=== PATIENT | female | born 1975 | race Asian ===

== ENCOUNTER 2021-01-18 07:18 | Inpatient (IN) | payer MEDICARE ==
[~2021-01-18] VITALS: Ht 152.4 cm; Wt 34.0 kg
--- NOTE | 2021-01-18 07:18 | NUR ---
PT WALKED TO ER CO WEAKNESS, SOB. PT BREATHING NORMALLY, RA 100%. PT SAYS THAT SHE WAS D/JAN FROM [facility] TODAY. PT SAYS THAT THEY GAVE HER SOME "SODIUM" AND SOME "NITRO", FOR HER TO FEEL BETTER. PT SAYS THAT SHE HAS BEEN SICK FOR 10 YRS BUT UNABLE TO PROVIDE DETAIL ABOUT HER MEDICAL HISTORY. PT DENEIS TO TAKE ANY MED AT HOME AND SAYS THAT SHE LIVES ALONE.
[2021-01-18] MEDS ORDERED: HYDROMORPHONE 1 MG/1 ML DISP.SYRIN IV ONE (07:45)
[2021-01-18] MEDS ORDERED: IV NORMAL SALINE 1000 ML BAG IV ONE (07:45)
[2021-01-18] MEDS ORDERED: ONDANSETRON 4 MG/2 ML VIAL IV ONE (07:45)
[2021-01-18] MEDS ORDERED: HYDROMORPHONE 1 MG/1 ML DISP.SYRIN ONE (08:08)
[2021-01-18] MEDS ORDERED: ONDANSETRON 4 MG/2 ML VIAL ONE (08:08)
[2021-01-18 08:18] LABS: BASOPHILS % (AUTO) 0.1 % (0.0-2.0); EOSINOPHILS % (AUTO) 0.3 % (0.0-7.0); HEMOGLOBIN 10.9 g/dL (10.9-14.3); LYMPHOCYTES # (AUTO) 1.6 K/uL (20.0-40.0); LYMPHOCYTES % (AUTO) 28.5 % (20.5-51.5); MEAN CORPUSCULAR HEMOGLOBIN 30.4 uug (24.7-32.8); MEAN CORPUSCULAR HGB CONC 34 g/dL (32.3-35.6); MEAN CORPUSCULAR VOLUME 89.1 fL (75.5-95.3); MONOCYTES # (AUTO) 0.4 K/uL (2.0-10.0); MONOCYTES % (AUTO) 8.1 % (0.0-11.0); NEUTROPHILS # (AUTO) 3.4 K/uL (1.8-8.9); PLATELET COUNT (AUTO) 362 K/uL (179-408); WHITE BLOOD COUNT (AUTO) 5.4 K/uL (3.8-11.8)
[2021-01-18 08:24] LABS: CREATININE 0.8 mg/dL (0.6-1.3); POTASSIUM 3.2 mmol/L (3.5-5.1)
[2021-01-18 08:29] LABS: BILIRUBIN,DIRECT 0.2 mg/dL (0.0-0.2); BILIRUBIN,TOTAL 0.4 mg/dL (0.2-1.0); TOTAL PROTEIN, SERUM 7.2 g/dL (6.4-8.2)
--- NOTE | 2021-01-18 08:45 | NUR ---
IN ROOM WITH PT MULTIPE TIMES, PT WORRIED THAT " SHE MIGHT HAVE MULTIPLE ORGAN FAILURE AND NASEEM ANXIOUS IF SHE CAN SEE HER DAUGHETR AGAIN." COMFORT MEASURES PROVIDED.
--- NOTE | 2021-01-18 08:55 | NUR ---
SOPHY CORDERO AT BEDSIDE. PT COMPLAINS OF CP/10.
--- NOTE | 2021-01-18 09:03 | NUR ---
OFFERD PT IF SHE NEEDS ANY MED TO CALM HER, SHE REFUSED ANY MED AT THIS TIME.
[2021-01-18] MEDS ORDERED: NITROGLYCERIN 0.4 MG/TAB BOTTLE SL ONE (09:15)
[2021-01-18] MEDS ORDERED: ASPIRIN 325 MG TABLET PO ONE (09:15)
--- NOTE | 2021-01-18 09:15 | NUR ---
RADHA GAEMZ AT BEDSIDE.
--- NOTE | 2021-01-18 09:30 | NUR ---
transfered pt to floor in stable condition.
[2021-01-18] MEDS ORDERED: IV 1/2NS 1000 ML 1,000 ML IV ONE (09:45)
[2021-01-18] MEDS ORDERED: MORPHINE SULFATE 2 MG/1 ML DISP.SYRIN IV PRN (09:45)
[2021-01-18] MEDS ORDERED: ACETAMINOPHEN 325 MG TABLET PO PRN (09:45)
[2021-01-18] MEDS ORDERED: ONDANSETRON 4 MG/2 ML VIAL IV PRN (09:45)
[2021-01-18] MEDS ORDERED: HYDROCODONE/APAP 5-325MG TABLET PO PRN (09:45)
[2021-01-18] MEDS ORDERED: MAGNESIUM HYDROXIDE 30 ML LIQUID UDC PO PRN (09:45)
[2021-01-18 10:00] VITALS: BP 103/67
[2021-01-18] MEDS ORDERED: diphenhydrAMINE 50 MG/1 ML VIAL IV ONE (11:30)
[2021-01-18] MEDS ORDERED: IOHEXOL 300MG/ML 100 ML INFUS..BTL ONE (11:46)
[2021-01-18] MEDS ORDERED: IOHEXOL 350 100 ML INFUS..BTL ONE (11:47)
[2021-01-18] MEDS ORDERED: IV NORMAL SALINE 250 ML IV ONE (11:47)
[2021-01-18] MEDS ORDERED: SWABABLE VALVE TRANSFER SET EA MC ONE (11:47)
[2021-01-18] MEDS ORDERED: ALPRAZOLAM 0.25 MG TABLET PO PRN (12:15)
[2021-01-18] MEDS ORDERED: POTASSIUM CHLORIDE 20 MEQ TAB.PRT.SR PO ONE (12:15)
[2021-01-18 16:29] VITALS: BP 119/74
--- NOTE | 2021-01-18 17:30 | NUR ---
Pt claiming that there is "something invading her face and that it needs drainage." Offered ice to be aplied on her neck. pt agreeable with intervention.
--- NOTE | 2021-01-18 18:00 | NUR ---
Applied ice pack applied on pt's neck. PT states that ice helped and now she is able eat her dinner. Pt ate 100% for dinner.
--- NOTE | 2021-01-18 18:00 | NUR ---
Pt IV on right ac intact. Noted dry skin "rash on back" pix take. Pt states she has "boil" on her upper and lower lips pix taken - but no boil visible. Pt states that her neck is swollen- but no swelling noted. Pt denies any c/o pain. Tele SNR. ECHO, CT HEAD, CT neck and CTA chest with contrast all done and tolerated by patient. Pt able to ambulates to bathroom with good balance. Call light is within reach.
--- NOTE | 2021-01-18 19:30 | NUR ---
RECEIVED PT AWAKE, ALERT AND ORIENTEDX4. PT IV INTACT.PT IN NO ACUTE RESPIRATORY DISTRESS. SAFETY AND COMFORT PROVIDED. WILL CONTINUE TO MONITOR.
[2021-01-18 20:35] VITALS: BP 111/69
--- NOTE | 2021-01-18 21:00 | NUR ---
DR. NELSON SEEN THE PT. PT STATING THAT SHE HAS BOILS ON HER MOUTH- BUT NO BOILS NOTED. PT STATING SHE HAS SWELLING ON HER NECK- BUT NO SWELLING NOTED. WILL CONTINUE TO MONITOR.
[2021-01-18] MEDS: ZOLPIDEM 5 MG TABLET PO PRN (22:56)
[2021-01-18 23:20] LABS: *CLARITY,URINE CLEAR (CLEAR); *COLOR,URINE YELLOW (YELLOW)
[2021-01-18 23:21] LABS: *BLOOD, URINE 3+ (NEGATIVE); PH,URINE 7.5 (5.0-8.0); UGLUCOSE NEGATIVE (NEGATIVE)
[2021-01-18 23:22] LABS: *BILIRUBIN,URIN NEGATIVE (NEGATIVE); *KETONES,URINE NEGATIVE (NEGATIVE); *UROBILINOGEN,URINE 0.2 E.U./dl (NORMAL); LEUKOCYTE ESTERASE ,URINE 1+ (NEGATIVE); NITRITE, URINE NEGATIVE (NEGATIVE)
[2021-01-18 23:36] LABS: BACTERIA,URINE NONE SEEN /HPF (NONE SEEN); MUCUS,URINE FEW /LPF (0-FEW); RBC,URINE 80-100 /HPF (0-3); SQUAMOUS EPITHELIAL CELL,UR FEW /HPF (NONE SEEN); URINE AMORPHOUS PHOSPHATES FEW /HPF
[2021-01-18 23:41] LABS: *AMPHETAMINE, URINE NEGATIVE (NEGATIVE); *CANNABINOID, URINE NEGATIVE (NEGATIVE); *COCCAINE, URINE NEGATIVE (NEGATIVE); *OPIATE, URINE NEGATIVE (NEGATIVE); *PHENCYCLIDINE SCREEN,URINE NEGATIVE (NEGATIVE)
[2021-01-19 00:21] VITALS: BP 114/69
[2021-01-19 04:33] VITALS: BP 102/67
[2021-01-19] MEDS: LEVOTHYROXINE SODIUM 25 MCG TABLET PO SCH (06:18)
--- NOTE | 2021-01-19 06:21 | NUR ---
PT SLEPT INTERMITTENTLY. AMBIEN PRN GIVEN AT 2256H. PT IN NO ACUTE DISTRESS. IV INTACT. PRESCRIBED MEDICATION GIVEN AND PT TOLERATED IT WELL. SAFETY AND COMFORT PROVIDED. WILL ENDORSE TO INCOMING NURSE FOR CONTINUITY OF CARE.
[2021-01-19 07:07] LABS: BASOPHILS % (AUTO) 0.7 % (0.0-2.0); EOSINOPHILS # (AUTO) 0.1 K/uL (0.0-0.7); EOSINOPHILS % (AUTO) 1.5 % (0.0-7.0); HEMOGLOBIN 9.4 g/dL (10.9-14.3); LYMPHOCYTES # (AUTO) 1.4 K/uL (20.0-40.0); LYMPHOCYTES % (AUTO) 37.4 % (20.5-51.5); MEAN CORPUSCULAR HGB CONC 33 g/dL (32.3-35.6); MEAN CORPUSCULAR VOLUME 92.8 fL (75.5-95.3); MONOCYTES # (AUTO) 0.3 K/uL (2.0-10.0); MONOCYTES % (AUTO) 9.1 % (0.0-11.0); NEUTROPHILS # (AUTO) 1.9 K/uL (1.8-8.9); NEUTROPHILS % (AUTO) 51.3 % (38.5-71.5); PLATELET COUNT (AUTO) 306 K/uL (179-408); RED BLOOD CELL COUNT(AUTO) 3.01 MIL/uL (3.63-4.92); WHITE BLOOD COUNT (AUTO) 3.8 K/uL (3.8-11.8)
[2021-01-19 07:21] LABS: BILIRUBIN,TOTAL 0.6 mg/dL (0.2-1.0); CREATININE 0.6 mg/dL (0.6-1.3); MAGNESIUM 2.2 mg/dL (1.8-2.4); PHOSPHOROUS 3.5 mg/dL (2.5-4.9); POTASSIUM 3.6 mmol/L (3.5-5.1); TOTAL PROTEIN, SERUM 5.8 g/dL (6.4-8.2)
[2021-01-19 08:00] VITALS: BP 105/68
[2021-01-19] MEDS: CEFTRIAXONE 1 G in IV DEXTROSE 5% 50 ML IV SCH (09:21)
--- NOTE | 2021-01-19 10:15 | NUR ---
PT SEEN BY [facility] PROVIDER WITH ORDER FOR PSYCH CONSULT TODAY. DR GRAHAM PSYCHIATRIST HAS BEEN NOTIFIED BY THE DISTILLERY LABORER.
--- NOTE | 2021-01-19 10:55 | NUR ---
SPOKE WITH PATIENT TO VERIFY HOME MEDICATION LIST. STATED THAT SHE USED TO TAKE ELAVIL AT HOME BUT HAS NOT TAKEN ANY FOR MANY MONTHS (MORE THAN A YEAR) SO SHE IS CURRENTLY NOT ON ANY MEDICATIONS. EMR UPDATED
[2021-01-19 11:32] VITALS: BP 102/66
[2021-01-19 15:48] VITALS: BP 98/66
--- NOTE | 2021-01-19 17:21 | NUR ---
[employer] [facility] Consultation requested. SW to follow-up with patient.
[2021-01-19] MEDS: PROTEIN SUPPLEMENT (PROSTAT) 30 ML LIQUID PO SCH (17:27)
--- NOTE | 2021-01-19 18:00 | NUR ---
NOTED ORDER FROM DR NELSON'S DISTRIBUTION ACCOUNTING CLERK DUSTIN FOR CT HEAD WITH CONTRAST. PT AWARE AND SIGNED CONSENT BUT SHE STATED THAT SHE IS ALLERGIC TO RAW SEAFOOD. NOTED ALSO THAT SHE HAD CONTRAST CTA DONE YESTERDAY AND NO ADVERSE EFFECTS NOTED. WILL ENDORSE TOMORROW FOR RADIOLOGY TO MAKE SURE THAT THERE WILL BE NO ADVERSE EFFECTS.
--- NOTE | 2021-01-19 19:30 | NUR ---
RECEIVED PT AWAKE, ALERT AND ORIENTEDX4. PT IN NO ACUTE DISTRESS. PT IV INTACT. SAFETY AND COMFORT PROVIDED. WILL CONTINUE TO MONITOR.
[2021-01-19 20:00] VITALS: BP 97/59
[2021-01-19] MEDS: AMITRIPTYLINE HCL 50 MG TABLET PO SCH (20:49)
[2021-01-20 00:01] VITALS: BP 97/64
[2021-01-20] MEDS: ZOLPIDEM 5 MG TABLET PO PRN (01:16)
[2021-01-20 04:00] VITALS: BP 99/51
--- NOTE | 2021-01-20 06:11 | NUR ---
PT SLEPT INTERMITTENTLY. PT IN NO ACUTE DISTRESS. NEED STOOL SPECIMEN FOR THE PT. PRESCRIBED MEDICATION GIVEN AND PT TOLERATED IT WELL. SAFETY AND COMFORT PROVIDED. ALL NEEDS ARE MET. WILL ENDORSE TO INCOMING NURSE FOR CONTINUITY OF CARE.
[2021-01-20 06:48] LABS: BASOPHILS % (AUTO) 0.8 % (0.0-2.0); EOSINOPHILS # (AUTO) 0.1 K/uL (0.0-0.7); EOSINOPHILS % (AUTO) 2.5 % (0.0-7.0); HEMOGLOBIN 10.5 g/dL (10.9-14.3); LYMPHOCYTES # (AUTO) 1.3 K/uL (20.0-40.0); LYMPHOCYTES % (AUTO) 42.7 % (20.5-51.5); MEAN CORPUSCULAR HEMOGLOBIN 30.5 uug (24.7-32.8); MEAN CORPUSCULAR HGB CONC 34 g/dL (32.3-35.6); MEAN CORPUSCULAR VOLUME 90.5 fL (75.5-95.3); MONOCYTES # (AUTO) 0.3 K/uL (2.0-10.0); MONOCYTES % (AUTO) 8.6 % (0.0-11.0); NEUTROPHILS # (AUTO) 1.4 K/uL (1.8-8.9); NEUTROPHILS % (AUTO) 45.4 % (38.5-71.5); PLATELET COUNT (AUTO) 326 K/uL (179-408); RED BLOOD CELL COUNT(AUTO) 3.43 MIL/uL (3.63-4.92)
[2021-01-20 07:07] LABS: HEPATITIS B SURFACE AB Non Reactive (.); HEPATITIS B SURFACE AG Negative (Negative)
[2021-01-20 07:26] LABS: CREATININE 0.7 mg/dL (0.6-1.3); POTASSIUM 3.3 mmol/L (3.5-5.1)
[2021-01-20] MEDS ORDERED: IV NORMAL SALINE 250 ML IV ONE (07:39)
[2021-01-20] MEDS ORDERED: IOHEXOL 300MG/ML 100 ML INFUS..BTL ONE (07:39)
[2021-01-20] MEDS ORDERED: SWABABLE VALVE TRANSFER SET EA MC ONE (07:39)
[2021-01-20 08:00] VITALS: BP 102/67
[2021-01-20] MEDS ORDERED: POTASSIUM CHLORIDE 20 MEQ POWDER PACKET PO ONE (08:00)
--- NOTE | 2021-01-20 08:00 | NUR ---
RECEIVED PATIENT AWAKE ALERT AND ORIENTED DENIES DISCOMFORTS AT THIS TIME SHE IS ON ROOM AIR WITH NO SHORTNESS OF BREATH AT THIS TIME PATIENT REMAINS NPO AT THIS TIME FOR SCHEDULED CT HEAD AMBULATORY TO AND FROM THE BATHROOM CALL LIGHTS AND PERSONAL BELONGINGS ARE WITHIN EASY REACH WILL CONTINUE TO OBSERVE.
[2021-01-20] MEDS: CEFTRIAXONE 1 G in IV DEXTROSE 5% 50 ML IV SCH (08:34)
[2021-01-20] MEDS: LEVOTHYROXINE SODIUM 25 MCG TABLET PO SCH (08:34)
[2021-01-20] MEDS: PROTEIN SUPPLEMENT (PROSTAT) 30 ML LIQUID PO SCH ×2 (09:09→17:15)
--- NOTE | 2021-01-20 10:00 | NUR ---
CT HEAD WITH CONTRAST COMPLETED ORDERED PATIENT TOLERATED HER BREAKFAST WELL AWAITING FOR RESULTS AT THIS TIME.
--- NOTE | 2021-01-20 10:30 | NUR ---
CONTINUE ON IV ANTIBIOTICS ORDERED WITH NO ADVERSE OR ALLERGIC REACTIONS AT THIS TIME WILL CONTINUE TO OBSERVE.
--- NOTE | 2021-01-20 11:58 | NUR ---
CALL RECEIVED FROM DR PETERSON WITH ORDERS WANTS ESOPHAGOGRAM TODAY AND TO KEEP PATINE NOTHING TO EAT AFTER MID NITE AND TO OBTAIN CONSCENT FOR EGD IN AM AND NOTED.
--- NOTE | 2021-01-20 13:04 | NUR ---
CONSCENT FOR EGD OBTAINED FROM THE PATIENT AND DOCUMENTED PATIENT INSTRUCTED ON THE PROCEDURE AND THAT SHE NEEDS TO BE NPO AFTER MID NITE TONIGHT AND SHE EXPRESSED UNDERSTANDING.
[2021-01-20] MEDS ORDERED: DIATR MEGLU/DIATRIZOATE SODIUM 30 ML BOTTLE ONE (15:37)
--- NOTE | 2021-01-20 15:47 | NUR ---
Clinical Social Work Notes Consult was ordered as patient's sister expressed concern about patient's mental health. Patient was undergoing an EGD at the time this automotive service writer when to evaluate her. Patient has a history of anxiety and sees a psychiatrist, Dr Pineda, via telepsychiatry and reported to Dr Anderson that she was on Ellavil and Alprazalom 0.[address] mg [address] the past[address] Dr Anderson restarted Ellavil 50 mg since patient says this worked for her in the past. This automotive service writer spoke with Dr Anderson who feels that patient is not meeting any inpatient criteria for psychiatric admission. Patient weighs 75 lbs and does wish that she weighed more. She ate 75 % of breakfast today and 100 % of her lunch. It appears patient does have some medical issues which include hypothyroidism. She is preoccupied with boils in her mouth but per Dr Gomez and nursing staff there is no evidence of this. Patient has not expressed any wish to harm herself or others. Patient's sister reportedly to nursing staff that pt. induces vomiting at times and does not eat but does not want the source of this information disclosed to the patient. Medical reasons for patient's low bodyweight are being ruled out. Plan: 1. Social work staff will follow up when patient is back from her procedures. 2. Patient is not meeting any acute inpatient psychiatric admission criteria per Dr Anderson feels he will only consult again if this is needed due to an acute change in her symptoms. 3. Patient is concerned about her medical symptoms and is being worked up for these.She may or may not have an eating disorder but this is not grounds for inpatient admission. She clearly has an anxiety disorder based on her self- report to Dr Anderson and from her prescribed psychotropic medication. 4. Patient will receive referrals for outpatient therapy and intensive outpatient if she is open to this which can be combined with her telepsychiatry with Dr Vance in [place]. Patient will return home once medically stable and cleared by [facility] [employer] group.
--- NOTE | 2021-01-20 17:21 | NUR ---
PATIENT WAS TAKEN BY W/CHAIR TO THE RADIOLOGY DEPARTMENT FOR THE ESOPHAGRAM ORDERED SO NOW THE RESULT IN UNREMARKABLE CALLED DR PETERSON AND NOTIFIED HIM AND HE STATED TO CANCEL THE EGD FOR TOMORROW NOT NECESSARY JUST DO A SWALLOW EVAL AND NOTED
--- NOTE | 2021-01-20 18:31 | NUR ---
CALLED EARNEST DIAZ NP AND LEFT HIM A MESSAGE RE DR PETERSON HAS CANCELLED THE EGD HE WAS PLANNING FOR TOMORROW BASED ON THE RESULT OF THE ESOPHAGRAM AND ORDERED SWALLOW EVALUATION INSTEAD WITH NO NEW ORDERS AT THIS TIME.
[2021-01-20] MEDS: AMITRIPTYLINE HCL 50 MG TABLET PO SCH (20:35)
[2021-01-20] MEDS: DOCUSATE SODIUM 100 MG CAPSULE PO SCH (20:35)
[2021-01-20 20:38] VITALS: BP 101/68
[2021-01-21 00:29] VITALS: BP 100/61
[2021-01-21 04:55] VITALS: BP 104/53
[2021-01-21] MEDS: LEVOTHYROXINE SODIUM 25 MCG TABLET PO SCH (06:25)
--- NOTE | 2021-01-21 06:39 | NUR ---
Pt slept well throughout the night. SR on tele. Denies chest pain or SOB. Pt stated she did not have a bowel movement for 2 days and was requesting docusate sodium, Dr. Olmedo made aware and ordered medication for patient. Tolerated medication well. Bed is locked and in lowest position, call light is within reach. No other issues or concerns at this time, will endorse to day shift.
[2021-01-21 06:59] LABS: BASOPHILS % (AUTO) 0.4 % (0.0-2.0); EOSINOPHILS # (AUTO) 0.1 K/uL (0.0-0.7); EOSINOPHILS % (AUTO) 3.7 % (0.0-7.0); HEMATOCRIT 29.2 % (31.2-41.9); LYMPHOCYTES # (AUTO) 1.4 K/uL (20.0-40.0); LYMPHOCYTES % (AUTO) 44.6 % (20.5-51.5); MEAN CORPUSCULAR HEMOGLOBIN 31.2 uug (24.7-32.8); MEAN CORPUSCULAR HGB CONC 34 g/dL (32.3-35.6); MONOCYTES # (AUTO) 0.3 K/uL (2.0-10.0); MONOCYTES % (AUTO) 10.4 % (0.0-11.0); NEUTROPHILS # (AUTO) 1.3 K/uL (1.8-8.9); NEUTROPHILS % (AUTO) 40.9 % (38.5-71.5); PLATELET COUNT (AUTO) 302 K/uL (179-408); RED BLOOD CELL COUNT(AUTO) 3.21 MIL/uL (3.63-4.92); WHITE BLOOD COUNT (AUTO) 3.2 K/uL (3.8-11.8)
[2021-01-21 07:28] LABS: CREATININE 0.7 mg/dL (0.6-1.3); POTASSIUM 3.4 mmol/L (3.5-5.1)
--- NOTE | 2021-01-21 07:30 | NUR ---
Shift report received, pt in bed resting. alert awake and oriented x4, skin intact, on tele monitor NSR, pt on room air, saturating at 98%, no signs of distress, no reports of pain reported at this time. Pt has BRP, pt on Rocephin to treat UTI. IV access on the right forearm 20g saline lock. Bed in low and locked position, call light within reach safety precautions in place. will continue with place of care.
[2021-01-21 08:00] VITALS: BP 93/62
[2021-01-21] MEDS ORDERED: POTASSIUM CHLORIDE 20 MEQ TAB.PRT.SR PO ONE (09:15)
[2021-01-21] MEDS: PROTEIN SUPPLEMENT (PROSTAT) 30 ML LIQUID PO SCH ×2 (09:22→17:47)
[2021-01-21] MEDS: CEFTRIAXONE 1 G in IV DEXTROSE 5% 50 ML IV SCH (09:28)
--- NOTE | 2021-01-21 13:41 | NUR ---
Clinical Social Work Note Met with patient who presents with bizarre affect. Patient is somatically preoccupied and somatic delusional disorder cannot be ruled out. She says she is now "going to see dr Lopez" after discharge. Patient is open to the idea of seeing a psychotherapist in addition to her psychiatrist. Patient lacks insight. She is not meeting any acute inpatient psychiatric criteria.She will return home once she is medically clear. Discussed case with Alfonso GARCIA who concurs with discharge plan.
[2021-01-21 16:35] VITALS: BP 119/80
[2021-01-21 20:24] VITALS: BP 94/60
[2021-01-21] MEDS: AMITRIPTYLINE HCL 50 MG TABLET PO SCH (20:53)
[2021-01-21] MEDS: DOCUSATE SODIUM 100 MG CAPSULE PO SCH (21:00)
[2021-01-22 00:12] VITALS: BP 94/57
[2021-01-22 04:20] VITALS: BP 103/54
--- NOTE | 2021-01-22 04:52 | NUR ---
Pt slept throughout the night, denies pain or SOB. Denies chest pain. Tolerated all medications well. SR on monitor. Bed is locked and in lowest position, call light is within reach. No other issues or concerns at this time, will endorse to day shift.
[2021-01-22] MEDS: LEVOTHYROXINE SODIUM 25 MCG TABLET PO SCH (05:54)
[2021-01-22 06:25] LABS: BASOPHILS % (AUTO) 0.7 % (0.0-2.0); EOSINOPHILS # (AUTO) 0.1 K/uL (0.0-0.7); EOSINOPHILS % (AUTO) 3.7 % (0.0-7.0); HEMATOCRIT 31.5 % (31.2-41.9); HEMOGLOBIN 10.4 g/dL (10.9-14.3); LYMPHOCYTES # (AUTO) 1.1 K/uL (20.0-40.0); MEAN CORPUSCULAR HEMOGLOBIN 30.5 uug (24.7-32.8); MEAN CORPUSCULAR HGB CONC 33 g/dL (32.3-35.6); MEAN CORPUSCULAR VOLUME 92.2 fL (75.5-95.3); MONOCYTES # (AUTO) 0.3 K/uL (2.0-10.0); MONOCYTES % (AUTO) 9.1 % (0.0-11.0); NEUTROPHILS # (AUTO) 1.4 K/uL (1.8-8.9); NEUTROPHILS % (AUTO) 48.5 % (38.5-71.5); PLATELET COUNT (AUTO) 312 K/uL (179-408); RED BLOOD CELL COUNT(AUTO) 3.42 MIL/uL (3.63-4.92)
[2021-01-22 06:55] LABS: CREATININE 0.7 mg/dL (0.6-1.3); MAGNESIUM 2.3 mg/dL (1.8-2.4); POTASSIUM 3.3 mmol/L (3.5-5.1)
[2021-01-22] MEDS ORDERED: POTASSIUM CHLORIDE 20 MEQ POWDER PACKET GT ONE (07:30)
[2021-01-22 08:42] VITALS: BP 95/72
[2021-01-22] MEDS: CEFTRIAXONE 1 G in IV DEXTROSE 5% 50 ML IV SCH (08:47)
[2021-01-22] MEDS: PROTEIN SUPPLEMENT (PROSTAT) 30 ML LIQUID PO SCH ×2 (08:47→17:01)
[2021-01-22 09:33] LABS: *OCCULT BLOOD STOOL NEGATIVE (NEGATIVE)
[2021-01-22] MEDS ORDERED: [UNRECOGNIZED DRUG - OTHER] TP PRN (11:45)
[2021-01-22] MEDS ORDERED: PETROLATUM,WHITE JELLY 28.35 GM TUBE TP PRN (13:00)
[2021-01-22 15:40] VITALS: BP 97/58
[2021-01-22 15:47] LABS: *RHEUMATOID FACTOR SCREEN NEGATIVE (NEGATIVE)
--- NOTE | 2021-01-22 19:30 | NUR ---
Received pt in bed, awake, verbally responsive, able to make needs known. Pleasant. On room air, non labored breathing, no s/s of respiratory distress. NSR on tele at 82/min. IV access intact and patent. Denies any pain or discomfort at this time. Safety measures in place, call light within reach, will continue to monitor.
[2021-01-22 20:00] VITALS: BP 101/63
[2021-01-22] MEDS: AMITRIPTYLINE HCL 50 MG TABLET PO SCH (20:57)
[2021-01-22] MEDS: DOCUSATE SODIUM 100 MG CAPSULE PO SCH (20:57)
[2021-01-23 00:16] VITALS: BP 96/56
[2021-01-23 04:24] VITALS: BP 93/57
--- NOTE | 2021-01-23 05:30 | NUR ---
Pt in bed, awake, able to make needs known. non labored breathing, no s/s of respiratory distress. NSR on tele at 72/min. Denies any pain or discomfort. Safety measures in place, call light within reach. For US abdomen today. NPO since midnight. all needs attended.
[2021-01-23] MEDS: LEVOTHYROXINE SODIUM 25 MCG TABLET PO SCH (06:03)
[2021-01-23 06:26] LABS: BASOPHILS % (AUTO) 0.6 % (0.0-2.0); EOSINOPHILS # (AUTO) 0.1 K/uL (0.0-0.7); EOSINOPHILS % (AUTO) 3.6 % (0.0-7.0); HEMATOCRIT 29.4 % (31.2-41.9); HEMOGLOBIN 9.8 g/dL (10.9-14.3); LYMPHOCYTES # (AUTO) 1.2 K/uL (20.0-40.0); LYMPHOCYTES % (AUTO) 36.3 % (20.5-51.5); MEAN CORPUSCULAR HEMOGLOBIN 30.5 uug (24.7-32.8); MEAN CORPUSCULAR HGB CONC 33 g/dL (32.3-35.6); MEAN CORPUSCULAR VOLUME 91.8 fL (75.5-95.3); MONOCYTES # (AUTO) 0.3 K/uL (2.0-10.0); MONOCYTES % (AUTO) 8.5 % (0.0-11.0); NEUTROPHILS # (AUTO) 1.6 K/uL (1.8-8.9); PLATELET COUNT (AUTO) 292 K/uL (179-408); RED BLOOD CELL COUNT(AUTO) 3.21 MIL/uL (3.63-4.92); WHITE BLOOD COUNT (AUTO) 3.2 K/uL (3.8-11.8)
[2021-01-23 06:53] LABS: CREATININE 0.7 mg/dL (0.6-1.3); MAGNESIUM 2.2 mg/dL (1.8-2.4); POTASSIUM 3.3 mmol/L (3.5-5.1)
--- NOTE | 2021-01-23 07:30 | NUR ---
received change of shift report. pt awake alert and oriented x4, on room air, no skin issues, pt on tele monitor NSR. no signs of distress noted, no reports of pain at this time. pt currently on NPO diet pending abdominal US. pt has BRP, steady gait, IV access on the left forearm 20g saline lock. Bed in low and locked position, call light within reach, safety precautions in place, will continue with plan of care.
[2021-01-23 08:00] VITALS: BP 92/57
[2021-01-23] MEDS: PROTEIN SUPPLEMENT (PROSTAT) 30 ML LIQUID PO SCH ×2 (08:47→17:22)
[2021-01-23] MEDS ORDERED: CEFTRIAXONE 1 G in IV DEXTROSE 5% 50 ML IV SCH (09:00)
[2021-01-23] MEDS ORDERED: POTASSIUM CHLORIDE 20 MEQ TAB.PRT.SR PO ONE (10:00)
[2021-01-23 11:52] VITALS: BP 103/68
[2021-01-23] MEDS ORDERED: AMIT50TA17 PO (14:13)
[2021-01-23] MEDS ORDERED: PROT30LI PO (14:13)
[2021-01-23] MEDS ORDERED: LEVO25TA9 PO (14:13)
[2021-01-23 16:17] VITALS: BP 107/50
[2021-01-23] MEDS ORDERED: INFLUENZA VACCINE 2020-2021 0.5 ML DISP.SYRIN IM ONE (18:15)
--- NOTE | 2021-01-23 18:59 | NUR ---
pt discharged home with all belongings, and paperwork. Pt awake alert and oriented x4, IV, tele monitor and ID band removed prior to discharge, pt anxious to get home and refused photos. Flu vaccine administered to pt. pt on room air no signs of distress noted, no reports of pain , all medications given as ordered, pt ambulatory with steady gait.
[2021-01-24 17:13] LABS: ANTI-DNA(DS) AB, QN <1
[2021-01-24 17:14] LABS: *SMITH ANTIBODIES <0.2
[2021-01-24 17:15] LABS: *ANTI-SCLERODERMA-70 AB <0.2; *SJOGREN'S ANTI-SS-A <0.2; *SJOGREN'S ANTI-SS-B <0.2
[2021-01-24 18:26] LABS: *THYROGLOBULIN <1.0
== END 2021-01-23 18:45 | disposition home or self-care (01) | DRG 643 ==
LOC: ER 07:18 → TELE3 09:24
PROVIDERS: ADMIT Nurse Practitioner Acute Care; ATTEND Nurse Practitioner Family
DX: E03.9 Hypothyroidism, unspecified (principal); I21.A1 Myocardial infarction type 2; N39.0 Urinary tract infection, site not specified; E44.1 Mild protein-calorie malnutrition; D61.818 Other pancytopenia; Z68.1 Body mass index [BMI] 19.9 or less, adult; G93.0 Cerebral cysts; R13.10 Dysphagia, unspecified; R53.1 Weakness; Z20.822 Contact with and (suspected) exposure to COVID-19; R74.01 Elevation of levels of liver transaminase levels; M79.7 Fibromyalgia; E88.09 Other disorders of plasma-protein metabolism, not elsewhere classified; R06.00 Dyspnea, unspecified; E87.6 Hypokalemia; F32.9 Major depressive disorder, single episode, unspecified; D64.9 Anemia, unspecified; M54.12 Radiculopathy, cervical region
CPT/HCPCS: 36415; 70030-TC; 70450; 70460; 70491; 71045; 71275; 73090; 74220; 76700; 83550; 83690; 83735; 84100; 84443; 85025; 85730; 86038; 86140; 86430; 86706; 86803; 87086; 87177; 87340; 87806; 90686; 93005; 93307; A4663; G0378; J0696; J1170; J1200; J2405; J3490; J7030; J7040; J7050; J7060; Q9963; Q9967; U0003